=== PATIENT | male | born 2005 | race Two or more races ===

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

== ENCOUNTER 2024-07-20 12:18 | Emergency (ER) | payer MEDICAID, OTHER ==
[~2024-07-20] VITALS: Ht 180.3 cm; Wt 68.0 kg
[~2024-07-20 12:18] MED LIST: ONDA-144 PO
[2024-07-20 14:13] VITALS: BP 114/58; PULSE 91; RESP 16; TEMP 99; O2SAT 99
[2024-07-20] MEDS: KETOROLAC TROMETH 30 MG/ML 1ML VIAL IM ONE (14:33)
[2024-07-20] MEDS ORDERED: IBUP1TAB5 PO (15:00)
[2024-07-20] MEDS ORDERED: HYDR-4902 PO (15:32)
[2024-07-20] MEDS: HYDROcodone-ACET 5/325MG TAB PO ONE (15:41)
== END 2024-07-20 16:01 | disposition home or self-care (01) ==
LOC: ER 12:18
DX: S82.832A Other fracture of upper and lower end of left fibula, initial encounter for closed fracture (principal); Z79.1 Long term (current) use of non-steroidal anti-inflammatories (NSAID); X58.XXXA Exposure to other specified factors, initial encounter; Y93.89 Activity, other specified; Y92.89 Other specified places as the place of occurrence of the external cause; Y99.8 Other external cause status
CPT/HCPCS: 29515; 73610; 73630; 96372; 99284; J1885; 29125